=== PATIENT | male | born 1975 | race Caucasian/White ===

== ENCOUNTER → 2019-12-14 | Outpatient (CLI) | payer OTHER ==
[2019-12-14 13:40] LABS: BLOOD UREA NITROGEN 15 MG/DL (7-18); CALCIUM LEVEL 9.5 MG/DL (8.5-10.1); CARBON DIOXIDE LEVEL 27 MEQ/L (21-32); CHLORIDE LEVEL 103 MEQ/L (98-107); CHOLESTEROL LEVEL 146 MG/DL (<200); CHOLESTEROL RISK RATIO 3.842 (<5); CREATININE FOR GFR 1.21 MG/DL (0.70-1.30); GLOMERULAR FILTRATION RATE > 60.0 (>60); GLUCOSE, FASTING 85 MG/DL (70-100); HDL CHOLESTEROL 38 MG/DL (>40); LDL CHOLESTEROL 87 MG/DL (<100); NON-HDL-C 108 MG/DL; POTASSIUM SERUM 4.2 MEQ/L (3.5-5.1); SODIUM LEVEL 137 MEQ/L (136-145); TRIGLYCERIDES LEVEL 107 MG/DL (<150)
== END ==
LOC: M LAB 11:59
PROVIDERS: ATTEND Registered Nurse Community Health
DX: E78.5 Hyperlipidemia, unspecified (principal); E66.9 Obesity, unspecified; J30.89 Other allergic rhinitis; R60.0 Localized edema

== ENCOUNTER 2025-06-20 11:10 | Emergency (ER) | payer OTHER, SELFPAY ==
[2025-06-20 11:50] LABS: BASO # 0.0 10^3/uL (0.0-0.2); BASO % 0.3 % (0.0-1.0); EOS # 0.0 10^3/uL (0.0-0.5); EOS % 0.1 % (0.0-3.0); LYMPH # 0.9 10^3/uL (1.5-5.0); LYMPH % 6.3 % (24.0-44.0); MONO # 1.2 10^3/uL (0.0-0.8); MONO % 8.5 % (2.0-8.0); NEUTROPHILS # 12.3 10^3/uL (1.5-8.5); NEUTROPHILS % 84.4 % (36.0-66.0); PLATELET COUNT, AUTOMATED 238 10^3/uL (150-450)
[2025-06-20 12:19] LABS: CK-MB VALUE MASS 2.7 NG/ML (<3.6)
[2025-06-20 12:20] LABS: CALCIUM LEVEL 8.7 MG/DL (8.5-10.1); CARBON DIOXIDE LEVEL 27 MMOL/L (20-31); CHLORIDE LEVEL 105 MMOL/L (98-107); CPK CREATINE PHOSPHOKINASE 118 U/L (46-171); CREATININE FOR GFR 1.01 MG/DL (0.70-1.30); GLOMERULAR FILTRATION RATE 90.0 (>56); MAGNESIUM LEVEL 1.6 MG/DL (1.8-2.4); MB/CK RELATIVE INDEX 2.28 (< OR =4); POTASSIUM SERUM 3.9 MMOL/L (3.5-5.1); SODIUM LEVEL 141 MMOL/L (136-145)
[2025-06-20] MEDS ORDERED: ISOVUE-370 76% 100 ML VIAL As Ordered ONE (12:32)
[2025-06-20 12:40] LABS: ALT/SGPT 23 U/L (7.0-40); AST/SGOT 23 U/L (<34)
[2025-06-20] MEDS: NS (Normal Saline) 0.9% 1,000 ML IV ONE (13:00)
[2025-06-20] MEDS: MAGNESIUM OXIDE 400 MG TAB PO ONE (13:00)
[2025-06-20 13:54] LABS: CK-MB VALUE MASS 1.8 NG/ML (<3.6)
[2025-06-20 14:00] LABS: CPK CREATINE PHOSPHOKINASE 124.0 U/L (46-171); MB/CK RELATIVE INDEX 1.45 (< OR =4)
[2025-06-20] MEDS ORDERED: AMOX875T2 PO (14:08)
[2025-06-20] MEDS: ERTAPENEM SODIUM 1 GM in NS MINI-BAG PLUS 50 ML IV ONE (14:28)
[2025-06-20 15:41] VITALS: BP 125/72; TEMP 99.3; O2SAT 99
== END 2025-06-20 15:48 | disposition home or self-care (01) ==
LOC: EDBD 11:10 → M ED 11:10
DX: R55 Syncope and collapse (principal); K57.32 Diverticulitis of large intestine without perforation or abscess without bleeding; I10 Essential (primary) hypertension; E78.5 Hyperlipidemia, unspecified; Z79.2 Long term (current) use of antibiotics
CPT/HCPCS: 71046; 74177; 80048; 80076; 82550; 82553; 83690; 83735; 84443; 84484; 85025; 93005; 93041; 94760; 96361; 96365; 99285; J1335; Q9967

== ENCOUNTER 2025-10-21 10:26 | Emergency (ER) | payer SELFPAY ==
[~2025-10-21] VITALS: Ht 190.5 cm; Wt 121.0 kg
[~2025-10-21 10:26] MED LIST: AMOX875T2 PO
[2025-10-21] MEDS ORDERED: IRON27TA2 PO (11:25)
[2025-10-21] MEDS ORDERED: BENZ200C70 PO (12:30)
[2025-10-21 12:39] VITALS: BP 157/97; TEMP 97.8; O2SAT 97
== END 2025-10-21 12:48 | disposition home or self-care (01) ==
LOC: M ED 10:26
DX: R05.9 Cough, unspecified (principal); I10 Essential (primary) hypertension; E78.5 Hyperlipidemia, unspecified; Z79.899 Other long term (current) drug therapy

== ENCOUNTER 2025-11-01 22:37 | Emergency (ER) | payer SELFPAY ==
[~2025-11-01] VITALS: Ht 190.5 cm; Wt 120.9 kg
[~2025-11-01 22:37] MED LIST changes: +BENZ200C70 PO; +IRON27TA2 PO
[2025-11-01 22:45] VITALS: BP 169/96; TEMP 99; O2SAT 98
== END 2025-11-02 01:20 | disposition left against medical advice (07) ==
LOC: M ED 22:37
DX: Z53.21 Procedure and treatment not carried out due to patient leaving prior to being seen by health care provider (principal)

== ENCOUNTER 2025-11-03 11:02 | Emergency (ER) | payer SELFPAY ==
[~2025-11-03] VITALS: Ht 190.5 cm; Wt 118.3 kg
[2025-11-03 13:12] VITALS: BP 172/108; TEMP 98.6; O2SAT 98
[2025-11-03] MEDS: dexAMETHasone 4 MG/ML 1 ML VIAL PO ONE (13:16)
== END 2025-11-03 13:22 | disposition home or self-care (01) ==
LOC: M ED 12:19
DX: J09.X2 Influenza due to identified novel influenza A virus with other respiratory manifestations (principal); R05.9 Cough, unspecified; E78.00 Pure hypercholesterolemia, unspecified; I10 Essential (primary) hypertension; Z79.899 Other long term (current) drug therapy
CPT/HCPCS: 71046; 87486; 87581; 87633; 87798; 99283; J1100